=== PATIENT | male | born 1995 | race Hispanic/Latino ===

== ENCOUNTER 2016-12-05 19:52 | Emergency (ER) | payer OTHER ==
[2016-12-05] MEDS ORDERED: predniSONE 20 MG TAB As Ordered ONE (21:49)
[2016-12-05] MEDS ORDERED: CETIRIZINE (ZyrTEC) 10 MG TAB As Ordered ONE (21:51)
--- NOTE | 2016-12-05 22:03 | EDDOCDS ---
Physician Documentation [facility] Name: Devin Dorsey Age: 21 yrs Sex: Male : 1995 Arrival Date: 12/05/2016 Time: 19:52 Bed I8 / 16 [facility]position: 12/05/16 21:44 Discharged to Home/Self Care. Impression: Contact urticaria. - Condition is Stable. - Discharge Instructions: Hives. - Prescriptions for Prednisone 20 mg Oral Tablet - take 1 tablet by ORAL route once daily for 5 days; 5 tablet. Zyrtec 10 mg Oral Tablet - take 1 tablet by ORAL route once daily As needed; 20 tablet. - Medication Reconciliation, Local Pharmacy Hours form. - [facility]; When: 2 - 3 days; Reason: Recheck today's complaints, Continuance of care. - Problem is an ongoing problem. - Symptoms are unchanged. - Notes: skin lotion like bag balm no gloves Historical: - Allergies: No known drug Allergies; - Home Meds: 1. none - PMHx: none; - PSHx: none; - Social history: Smoking status: Patient states was never smoker of tobacco. No barriers to communication noted, The patient speaks fluent Andorran, Speaks appropriately for age. - Family history: Not pertinent. - : The pt / caregiver states he / she is not on anticoagulants. Home medication list is obtained from the patient. - Exposure Risk Screening:: None identified. Vital Signs: 12/05 19:55 BP 145 / 72; Pulse 97; Resp 16; Temp 97; Pulse Ox 98% ; Weight 66.22 kg / 145.99 lbs; cmb Height 66 in. (167.64 cm); Pain 10/10; 19:55 Body Mass Index 23.56 (66.22 kg, 167.64 cm) cmb MDM: 21:41 predniSONE 20 mg PO once; administer with food or milk ordered. ke 21:41 cetirizine 10 mg PO once ordered. ke 21:45 Financial registration complete. ks 21:46 [facility] Payment Agreement was scanned into [employer] and attached to record. [email or web address] Administered Medications: 21:55 Drug: predniSONE 20 mg [prednisone 20 mg tablet (1 tabs)] Route: PO; dsf 21:55 Drug: cetirizine 10 mg [cetirizine 10 mg tablet (1 tabs)] Route: PO; dsf Signatures: Ronal Ma RN RN cz Elsner, Karl, FNP FNP ke Fuller, Desiree, RN RN dsf Sorenson, Kimberly, Reg Reg ks16 The chart was reviewed and I authenticate all verbal orders and agree with the evaluation and treatment provided.Attachments: 21:46 [facility] Payment Agreement [email or web address] MTDD
--- NOTE | 2016-12-05 22:03 | EDDOCDS ---
Nurse's Notes [facility] Name: Devin Dorsey Age: 21 yrs Sex: Male : 1995 Arrival Date: 12/05/2016 Time: 19:52 Bed I8 / 16 Private MD: MITESH KOEHLER Diagnosis: Contact urticaria Presentation: 12/05 19:56 Presenting complaint: Patient states: has a rash on hands that may have started 4 days cz ago. Adult Sepsis Screening: The patient does not have new or worsening altered mentation. Patient's respiratory rate is less than 22. Systolic blood pressure is greater than 100. Patient has a qSOFA score of 0- Negative Sepsis Screen. Suicide/Homicide risk assessment- the patient denies having any suicidal and/or homicidal ideations and does not present with any other emotional, behavioral or mental health complaints. Status: The patient is an active duty managed services consultant. Transition of care: patient was not received from another setting of care. 19:56 Acuity: GERI Level 5 cz 19:56 Method Of Arrival: Walkin/Carried/Asstd cz Triage Assessment: 19:57 General: Appears in no apparent distress. Pain: Denies pain. Pt Declines HIV testing. cz Historical: - Allergies: No known drug Allergies; - Home Meds: 1. none - PMHx: none; - PSHx: none; - Social history: Smoking status: Patient states was never smoker of tobacco. No barriers to communication noted, The patient speaks fluent Irish, Speaks appropriately for age. - Family history: Not pertinent. - : The pt / caregiver states he / she is not on anticoagulants. Home medication list is obtained from the patient. - Exposure Risk Screening:: None identified. Screenin:56 Screening information is obtained from the patient. Fall risk: No risks identified. dsf Assistance ADL's: requires no assistance with activities of daily living. Abuse/DV Screen: The patient / caregiver reports he/she is: not in a situation that causes fear, pain or injury. Nutritional screening: No deficits noted. Advance Directives: Currently, there is no health care proxy. home support is adequate. Assessment: 21:56 Adult Sepsis Screening: The patient does not have new or worsening altered mentation. dsf Patient's respiratory rate is less than 22. Systolic blood pressure is greater than 100. Patient has a qSOFA score of 0- Negative Sepsis Screen. General: Appears in no apparent distress, Behavior is appropriate for age, cooperative. Pain: Denies pain. Neurological: Level of Consciousness is awake, alert. Cardiovascular: Capillary refill < 3 seconds. Respiratory: Airway is patent Respiratory effort is even, unlabored, Respiratory pattern is regular, symmetrical. Derm: top of bilateral hand reddened and pt c/o burning. Vital Signs: 19:55 BP 145 / 72; Pulse 97; Resp 16; Temp 97; Pulse Ox 98% ; Weight 66.22 kg; Height 66 in. cmb (167.64 cm); Pain 10/10; 19:55 Body Mass Index 23.56 (66.22 kg, 167.64 cm) cmb Vitals: 19:55 Log In Time: December 05, 2016 at 19:52. b ED Course: 19:53 Patient visited by Therese Guerin. cmb 19:53 Patient moved to Waiting cmb 19:54 [facility] is Private Physician. cmb 19:56 Patient moved to Pre RCE cmb 19:57 Triage Initiated cz 21:25 [facility] ke 21:25 Patient visited by Kameron Brown FNP. ke 21:25 Patient visited by Kameron Brown FNP. ke 21:25 Patient moved to I8 / 16 mb9 21:41 [facility] is Referral Physician. ke 21:46 [facility] Payment Agreement was scanned into [employer] and attached to record. [email or web address] 21:52 Patient name changed from Devin\S\\S\Willian\S\ to Devin\S\ \S\Willian. EDMS 21:56 The patient / caregiver is instructed regarding the plan of care and ED course. dsf 21:56 No IV's were initiated during this patient's visit. No procedures done that require dsf assistance. Administered Medications: 21:55 Drug: predniSONE 20 mg [prednisone 20 mg tablet (1 tabs)] Route: PO; dsf 21:55 Drug: cetirizine 10 mg [cetirizine 10 mg tablet (1 tabs)] Route: PO; dsf Order Results: There are currently no results for this order. Outcome: 21:44 Discharge ordered by Provider. ke 21:56 Discharge Assessment: Patient awake, alert and oriented x 3. No cognitive and/or dsf functional deficits noted. Patient verbalized understanding of disposition instructions. patient administered narcotics - no. The following High Risk Discharge criteria are identified: None. Discharged to home ambulatory. Condition: stable. Discharge instructions given to patient, Instructed on discharge instructions, follow up and referral plans. medication usage, Demonstrated understanding of instructions, medications, Pt was receptive of discharge instructions/ teaching. Prescriptions given X 2. No special radiology studies were completed. Property sent home with patient. 22:02 Patient left the ED. dsf Signatures: Dispatcher [employer] EDMS Ronal Ma, RN RN Kameron Martínez, OPTION TRADER Claudia GarciaRN RN dsf Therese Guerin Michael, RN RN mbEneida Lawson, Reg Reg ks16 ALLISON
--- NOTE | 2016-12-07 23:03 | EDDOCDS ---
Physician Documentation [facility] Name: Devin Dorsye Age: 21 yrs Sex: Male : 1995 Arrival Date: 12/05/2016 Time: 19:52 Bed I8 / 16 [facility] Disposition: 12/05/16 21:44 Discharged to Home/Self Care. Impression: Contact urticaria. - Condition is Stable. - Discharge Instructions: Hives. - Prescriptions for Prednisone 20 mg Oral Tablet - take 1 tablet by ORAL route once daily for 5 days; 5 tablet. Zyrtec 10 mg Oral Tablet - take 1 tablet by ORAL route once daily As needed; 20 tablet. - Medication Reconciliation, Local Pharmacy Hours form. - [facility]; When: 2 - 3 days; Reason: Recheck today's complaints, Continuance of care. - Problem is an ongoing problem. - Symptoms are unchanged. - Notes: skin lotion like bag balm no gloves Historical: - Allergies: No known drug Allergies; - Home Meds: 1. none - PMHx: none; - PSHx: none; - Social history: Smoking status: Patient states was never smoker of tobacco. No barriers to communication noted, The patient speaks fluent Mexican, Speaks appropriately for age. - Family history: Not pertinent. - : The pt / caregiver states he / she is not on anticoagulants. Home medication list is obtained from the patient. - Exposure Risk Screening:: None identified. Vital Signs: 12/05 19:55 BP 145 / 72; Pulse 97; Resp 16; Temp 97; Pulse Ox 98% ; Weight 66.22 kg / 145.99 lbs; cmb Height 66 in. (167.64 cm); Pain 10/10; 19:55 Body Mass Index 23.56 (66.22 kg, 167.64 cm) cmb MDM: 21:41 predniSONE 20 mg PO once; administer with food or milk ordered. ke 21:41 cetirizine 10 mg PO once ordered. ke 21:45 Financial registration complete. 21:46 [facility] Payment Agreement was scanned into [employer] and attached to record. 12/06 11:37 T-Sheet-- Draft Copy was scanned into [employer] and attached to record. gb Administered Medications: 12/05 21:55 Drug: predniSONE 20 mg [prednisone 20 mg tablet (1 tabs)] Route: PO; dsf 21:55 Drug: cetirizine 10 mg [cetirizine 10 mg tablet (1 tabs)] Route: PO; [facility] Signatures: Ronal Ma, JAVIER HERRERA cz Yadira Scott, Reg Reg gb Kameron Brown, [employer] WIRING TECHNICIAN Claudia Garcia RN RN dsf Eneida Mack, Reg Reg ks16 The chart was reviewed and I authenticate all verbal orders and agree with the evaluation and treatment provided.Attachments: 21:46 [facility] Payment Agreement [email or web address] 12/06 11:37 T-Sheet-- Draft Copy gb Chart Complete MTDD
--- NOTE | 2016-12-07 23:03 | EDDOCDS ---
Nurse's Notes [facility] Name: Devin Dorsey Age: 21 yrs Sex: Male : 1995 Arrival Date: 12/05/2016 Time: 19:52 Bed I8 / 16 Private MD: MITESH KOEHLER Diagnosis: Contact urticaria Presentation: 12/05 19:56 Presenting complaint: Patient states: has a rash on hands that may have started 4 days cz ago. Adult Sepsis Screening: The patient does not have new or worsening altered mentation. Patient's respiratory rate is less than 22. Systolic blood pressure is greater than 100. Patient has a qSOFA score of 0- Negative Sepsis Screen. Suicide/Homicide risk assessment- the patient denies having any suicidal and/or homicidal ideations and does not present with any other emotional, behavioral or mental health complaints. Status: The patient is an active duty service desk agent. Transition of care: patient was not received from another setting of care. 19:56 Acuity: GERI Level 5 cz 19:56 Method Of Arrival: Walkin/Carried/Asstd cz Triage Assessment: 19:57 General: Appears in no apparent distress. Pain: Denies pain. Pt Declines HIV testing. cz Historical: - Allergies: No known drug Allergies; - Home Meds: 1. none - PMHx: none; - PSHx: none; - Social history: Smoking status: Patient states was never smoker of tobacco. No barriers to communication noted, The patient speaks fluent Greek, Speaks appropriately for age. - Family history: Not pertinent. - : The pt / caregiver states he / she is not on anticoagulants. Home medication list is obtained from the patient. - Exposure Risk Screening:: None identified. Screenin:56 Screening information is obtained from the patient. Fall risk: No risks identified. dsf Assistance ADL's: requires no assistance with activities of daily living. Abuse/DV Screen: The patient / caregiver reports he/she is: not in a situation that causes fear, pain or injury. Nutritional screening: No deficits noted. Advance Directives: Currently, there is no health care proxy. home support is adequate. Assessment: 21:56 Adult Sepsis Screening: The patient does not have new or worsening altered mentation. dsf Patient's respiratory rate is less than 22. Systolic blood pressure is greater than 100. Patient has a qSOFA score of 0- Negative Sepsis Screen. General: Appears in no apparent distress, Behavior is appropriate for age, cooperative. Pain: Denies pain. Neurological: Level of Consciousness is awake, alert. Cardiovascular: Capillary refill < 3 seconds. Respiratory: Airway is patent Respiratory effort is even, unlabored, Respiratory pattern is regular, symmetrical. Derm: top of bilateral hand reddened and pt c/o burning. Vital Signs: 19:55 BP 145 / 72; Pulse 97; Resp 16; Temp 97; Pulse Ox 98% ; Weight 66.22 kg; Height 66 in. cmb (167.64 cm); Pain 10/10; 19:55 Body Mass Index 23.56 (66.22 kg, 167.64 cm) cmb Vitals: 19:55 Log In Time: December 05, 2016 at 19:52. b ED Course: 19:53 Patient visited by Therese Guerin. cmb 19:53 Patient moved to Waiting cmb 19:54 [facility] is Private Physician. cmb 19:56 Patient moved to Pre RCE cmb 19:57 Triage Initiated cz 21:25 [facility] ke 21:25 Patient visited by Kameron Brown FNP. ke 21:25 Patient visited by Kameron Brown FNP. ke 21:25 Patient moved to I8 / 16 mb9 21:41 [facility] is Referral Physician. ke 21:46 [facility] Payment Agreement was scanned into [employer] and attached to record. [email or web address] 21:52 Patient name changed from Devin\S\\S\Willian\S\ to Devin\S\ \S\Willian. EDMS 21:56 The patient / caregiver is instructed regarding the plan of care and ED course. dsf 21:56 No IV's were initiated during this patient's visit. No procedures done that require dsf assistance. 12/06 11:37 T-Sheet-- Draft Copy was scanned into [employer] and attached to record. gb Administered Medications: 12/05 21:55 Drug: predniSONE 20 mg [prednisone 20 mg tablet (1 tabs)] Route: PO; dsf 21:55 Drug: cetirizine 10 mg [cetirizine 10 mg tablet (1 tabs)] Route: PO; dsf Order Results: There are currently no results for this order. Outcome: 21:44 Discharge ordered by Provider. ke 21:56 Discharge Assessment: Patient awake, alert and oriented x 3. No cognitive and/or dsf functional deficits noted. Patient verbalized understanding of disposition instructions. patient administered narcotics - no. The following High Risk Discharge criteria are identified: None. Discharged to home ambulatory. Condition: stable. Discharge instructions given to patient, Instructed on discharge instructions, follow up and referral plans. medication usage, Demonstrated understanding of instructions, medications, Pt was receptive of discharge instructions/ teaching. Prescriptions given X 2. No special radiology studies were completed. Property sent home with patient. 22:02 Patient left the ED. dsf Signatures: Dispatcher [employer] EDMS Ronal Ma, JAVIER HERRERA cz Yadira Scott, Reg Reg gb Kameron Brown, COUNTER TENDER COUNTER TENDER Claudia Dominguez RN RN dsf Therese Guerin Michael, RN RN mb9 Sorenson, Kimberly, Reg Reg ks16 Chart Complete ALLISON
--- NOTE | 2016-12-07 23:03 | EDDOCDS ---
Physician Documentation [facility] Name: Devin Dorsey Age: 21 yrs Sex: Male : 1995 Arrival Date: 12/05/2016 Time: 19:52 Bed I8 / 16 [facility] Disposition: 12/05/16 21:44 Discharged to Home/Self Care. Impression: Contact urticaria. - Condition is Stable. - Discharge Instructions: Hives. - Prescriptions for Prednisone 20 mg Oral Tablet - take 1 tablet by ORAL route once daily for 5 days; 5 tablet. Zyrtec 10 mg Oral Tablet - take 1 tablet by ORAL route once daily As needed; 20 tablet. - Medication Reconciliation, Local Pharmacy Hours form. - [facility]; When: 2 - 3 days; Reason: Recheck today's complaints, Continuance of care. - Problem is an ongoing problem. - Symptoms are unchanged. - Notes: skin lotion like bag balm no gloves Historical: - Allergies: No known drug Allergies; - Home Meds: 1. none - PMHx: none; - PSHx: none; - Social history: Smoking status: Patient states was never smoker of tobacco. No barriers to communication noted, The patient speaks fluent Malawian, Speaks appropriately for age. - Family history: Not pertinent. - : The pt / caregiver states he / she is not on anticoagulants. Home medication list is obtained from the patient. - Exposure Risk Screening:: None identified. Vital Signs: 12/05 19:55 BP 145 / 72; Pulse 97; Resp 16; Temp 97; Pulse Ox 98% ; Weight 66.22 kg / 145.99 lbs; cmb Height 66 in. (167.64 cm); Pain 10/10; 19:55 Body Mass Index 23.56 (66.22 kg, 167.64 cm) cmb MDM: 21:41 predniSONE 20 mg PO once; administer with food or milk ordered. ke 21:41 cetirizine 10 mg PO once ordered. ke 21:45 Financial registration complete. 21:46 [facility] Payment Agreement was scanned into [employer] and attached to record. 12/06 11:37 T-Sheet-- Draft Copy was scanned into [employer] and attached to record. gb Administered Medications: 12/05 21:55 Drug: predniSONE 20 mg [prednisone 20 mg tablet (1 tabs)] Route: PO; dsf 21:55 Drug: cetirizine 10 mg [cetirizine 10 mg tablet (1 tabs)] Route: PO; [facility] Signatures: Ronal Ma, JAVIER HERRERA cz Yadira Scott, Reg Reg gb Kameron Brown, EDGE INKER Claudia Garcia RN RN dsf Eneida Mack, Reg Reg ks16 The chart was reviewed and I authenticate all verbal orders and agree with the evaluation and treatment provided.Attachments: 21:46 [facility] Payment Agreement [email or web address] 12/06 11:37 T-Sheet-- Draft Copy gb Chart Complete MTDD
== END 2016-12-05 22:02 | disposition home or self-care (01) ==
LOC: M ED 19:52
DX: R22.1 Localized swelling, mass and lump, neck (principal); T78.40XA Allergy, unspecified, initial encounter; Y92.89 Other specified places as the place of occurrence of the external cause